=== PATIENT | male | born 1955 | race Caucasian/White ===

== ENCOUNTER 2018-04-12 06:00 | Day surgery (SDC) | payer OTHER ==
[~2018-04-12 06:00] MED LIST: ASPIR 8181 MG PO; ATENOLOL50 MG PO; FOLIC ACID1 MG PO; HYZAAR 100-12.1 EACH PO; MEFORMIN PO; SIMVASTATIN PO; SYNTHROID112 MCG PO; TAMS0.4C PO
== END 2018-04-12 17:57 | disposition home or self-care (01) ==
LOC: CIR.AMB 06:00
DX: M75.121 Complete rotator cuff tear or rupture of right shoulder, not specified as traumatic (principal); M75.01 Adhesive capsulitis of right shoulder; M24.111 Other articular cartilage disorders, right shoulder; M19.011 Primary osteoarthritis, right shoulder